=== PATIENT | male | born 1960 | race Caucasian/White ===

== ENCOUNTER → 2019-05-23 14:23 | Outpatient (BNVA) | payer MEDICARE, MEDICAID, SELFPAY | PROVIDERS: Family Provider Family Medicine; PCP Family Medicine; Visit Provider Nurse Practitioner Family | DX: S67.192A Crushing injury of right middle finger, initial encounter (principal); W23.0XXA Caught, crushed, jammed, or pinched between moving objects, initial encounter; M79.89 Other specified soft tissue disorders | CPT/HCPCS: 73140 ==

== ENCOUNTER → 2019-10-02 10:56 | Outpatient (BNVA) | payer MEDICARE, SELFPAY | PROVIDERS: Family Provider Family Medicine; PCP Family Medicine; Visit Provider Nurse Practitioner Family | DX: R06.02 Shortness of breath (principal); F17.200 Nicotine dependence, unspecified, uncomplicated; R06.89 Other abnormalities of breathing; J06.9 Acute upper respiratory infection, unspecified | CPT/HCPCS: 71046; 80053; 85025 ==

== ENCOUNTER 2019-10-26 08:52 | Outpatient (CLI) | payer MEDICARE, SELFPAY ==
--- NOTE | 2019-10-26 09:05 | CT_ITS ---
WS: [id number] CT LUNG CANCER SCREENING DLP: 68.87 mGy.cm DIvol: 1.53 mGy CLINICAL INFORMATION SCREENING VISIT: Baseline COMPARISON: None available. FINDINGS Diagnostic quality: Small amount of artifact through the upper RIGHT thorax from the generator of the cardiac pacer. Comments: None. Lung Nodules: No nodules greater than 3 mm. There are a few scattered benign granulomata. Lungs: Severe hyperexpansion of both lungs. Greater air trapping in the RIGHT lung shift of the midli ne structures slightly to the LEFT. There is some very mild increased interstitial thickening through out the LEFT lung but no pneumonia. No endobronchial lesions. Heart: Normal size heart. Dual lead cardiac pacer wires in the RIGHT heart. Other findings: Normal size aorta. No adenopathy. CT/CT lung screening [id number] IMPRESSION: LUNG-RADS: 2-Benign Appearance or Behavior FOLLOW UP: 12 Month: Continue annual screening with LDCT
== END 2019-10-26 08:53 | disposition home or self-care (01) ==
PROVIDERS: Family Provider Family Medicine; PCP Family Medicine; Visit Provider Nurse Practitioner Family
DX: Z12.2 Encounter for screening for malignant neoplasm of respiratory organs (principal); Z87.891 Personal history of nicotine dependence
CPT/HCPCS: G0297

== ENCOUNTER → 2020-10-31 19:29 | Outpatient (BNVA) | payer MEDICARE, SELFPAY | PROVIDERS: Family Provider Family Medicine; PCP Family Medicine; Visit Provider Internal Medicine Critical Care Medicine | DX: Z20.822 Contact with and (suspected) exposure to COVID-19 (principal) | CPT/HCPCS: 87635 ==

== ENCOUNTER 2020-11-05 10:58 | Outpatient (CLI) | payer MEDICARE, SELFPAY ==
--- NOTE | 2020-11-05 11:30 | CT_ITS ---
WS: [id number] LDCT LUNG CANCER SCREENING HISTORY: Z87.891 - Personal history of nicotine dependence TECHNIQUE: Axial imaging performed from the apices to 1 cm below the costophrenic angles. Coronal and sagittal reformats are submitted with axial MIP series. All CT scans at [facility] use at least one of these dose optimization techniques: automated exposure control; mA and/or kV adjustment per patient size (includes targeted exams where dose is matched to clinical indication); or iterativ e reconstruction. DLP: 96.13 mGy.cm DIvol: 2.38 mGy COMPARISON: 10/26/2019 Diagnostic quality: Satisfactory Lung Nodules: No new or enlarging pulmonary nodules. There are a few benign scattered granulomata. Lungs: Marked pulmonary hyperexpansion. Slightly greater air trapping on the RIGHT causing shift of t he midline structures to the LEFT. Overall appearance of the lungs is similar to the prior examinatio n. There are a few 2 mm nodules in the periphery of the upper lung jimenez which are nonspecific and s table. Heart: Normal size. Dual lead cardiac pacer wires are present. Other findings: Mild atherosclerosis aorta. Pulmonary artery size is equal to the aorta. Small hiatal hernia. CT/CT lung screening [id number] IMPRESSION: LUNG-RADS: 2-Benign Appearance or Behavior FOLLOW UP: 12 Month: Continue annual screening with LDCT OTHER FINDINGS (S MODIFIER): None.
== END 2020-11-05 10:59 | disposition home or self-care (01) ==
LOC: RAD 11:05
PROVIDERS: PCP Family Medicine; Visit Provider Internal Medicine Critical Care Medicine
DX: Z12.2 Encounter for screening for malignant neoplasm of respiratory organs (principal); Z87.891 Personal history of nicotine dependence; I70.0 Atherosclerosis of aorta; K44.9 Diaphragmatic hernia without obstruction or gangrene
CPT/HCPCS: 71271

== ENCOUNTER → 2020-12-12 09:47 | Outpatient (BNVA) | payer MEDICARE, SELFPAY | PROVIDERS: PCP Family Medicine; Visit Provider Internal Medicine Pulmonary Disease | DX: Z20.822 Contact with and (suspected) exposure to COVID-19 (principal); R06.02 Shortness of breath | CPT/HCPCS: 87635 ==

== ENCOUNTER 2020-12-18 10:57 | Outpatient (CLI) | payer MEDICARE, SELFPAY ==
--- NOTE | 2020-12-18 11:18 | PFTS_ITS ---
Date of Study:12/18/20 Date of Dictation: 12/18/20 MECHANICS: Forced vital capacity (FVC) is reduced. Forced expiratory volume in one second (FEV1) is very severely reduced . FEV1/FVC is reduced . FLOW VOLUME LOOP: Scooping of end expiratory limb suggestive of severe airway obstruction . LUNG VOLUMES: Total lung capacity (TLC) is increased . Residual volume (RV) is increased suggesting of severe air trapping. RV/TLC significantly increased-suggesting hyperinflation DIFFUSING CAPACITY FOR CARBON MONOXIDE: Severely reduced 35% . INTERPRETATION: The pulmonary function tests are consistent with severe obstructive ventilatory disease with significant air trapping and hyperinflation on lung volumes. There is severe gas transfer defect. Correlate clinically MTDD
== END 2020-12-18 10:58 | disposition home or self-care (01) ==
PROVIDERS: PCP Family Medicine; Visit Provider Internal Medicine Critical Care Medicine
DX: J44.9 Chronic obstructive pulmonary disease, unspecified (principal)
CPT/HCPCS: 94060; 94726; 94729; J7611

== ENCOUNTER 2021-05-21 12:16 | Outpatient (RCR) | payer MEDICARE, MEDICAID, SELFPAY | END 2021-06-01 23:59 | disposition home or self-care (01) | LOC: PULRHB 12:16 | PROVIDERS: PCP Family Medicine; Visit Provider Internal Medicine Critical Care Medicine | DX: J44.9 Chronic obstructive pulmonary disease, unspecified (principal) | CPT/HCPCS: 94626 ==

== ENCOUNTER 2021-06-02 06:00 | Outpatient (RCR) | payer MEDICARE, MEDICAID, SELFPAY | END 2021-07-02 23:59 | disposition home or self-care (01) | LOC: PULRHB 06:00 | PROVIDERS: PCP Family Medicine; Visit Provider Internal Medicine Critical Care Medicine | DX: J44.9 Chronic obstructive pulmonary disease, unspecified (principal) | CPT/HCPCS: 93280; 94626 ==

== ENCOUNTER → 2021-06-19 10:54 | Outpatient (BNVA) | payer MEDICARE, SELFPAY | PROVIDERS: PCP Family Medicine; Visit Provider Internal Medicine Cardiovascular Disease | DX: Z95.0 Presence of cardiac pacemaker (principal) | CPT/HCPCS: 93280 ==

== ENCOUNTER → 2021-06-29 09:52 | Outpatient (BNVA) | payer MEDICARE, SELFPAY | PROVIDERS: PCP Family Medicine; Visit Provider Internal Medicine Cardiovascular Disease | DX: R06.02 Shortness of breath (principal); I50.33 Acute on chronic diastolic (congestive) heart failure; J44.9 Chronic obstructive pulmonary disease, unspecified; Z95.0 Presence of cardiac pacemaker; I49.8 Other specified cardiac arrhythmias; Z87.891 Personal history of nicotine dependence | CPT/HCPCS: 99214 ==

== ENCOUNTER → 2021-12-15 11:55 | Outpatient (BNVA) | payer MEDICARE, SELFPAY | PROVIDERS: PCP Family Medicine; Visit Provider Internal Medicine Cardiovascular Disease | DX: R06.02 Shortness of breath (principal); I49.8 Other specified cardiac arrhythmias; J44.9 Chronic obstructive pulmonary disease, unspecified; Z87.891 Personal history of nicotine dependence; Z95.0 Presence of cardiac pacemaker | CPT/HCPCS: 99213 ==

== ENCOUNTER 2021-12-29 10:03 | Outpatient (CLI) | payer MEDICARE, SELFPAY ==
--- NOTE | 2021-12-29 13:21 | PFTS_ITS ---
Date of Study:12/29/21 Date of Dictation: MECHANICS: Forced vital capacity (FVC) is reduced. Forced expiratory volume in one second (FEV1) is reduced. FEV1/FVC is reduced. FLOW VOLUME LOOP: Reduced flow at all lung volumes with significant scooping. The inspiratory limb has evidence of variable inspiratory flow obstruction. LUNG VOLUMES: Total lung capacity (TLC) is increased. Residual volume (RV) is increased. DIFFUSING CAPACITY FOR CARBON MONOXIDE: Severely reduced. INTERPRETATION: The postbronchodilator spirometry is consistent with severe airflow obstruction. There is no significant postbronchodilator response. The flow volume loop could be suggestive of variable inspiratory airflow obstruction such as vocal cord dysfunction. The lung volumes are consistent with hyperinflation and air trapping. Gas exchange (DLCO) is severely reduced. MTDD
== END 2021-12-29 10:04 | disposition home or self-care (01) ==
LOC: RT 10:05
PROVIDERS: PCP Family Medicine; Visit Provider Family Medicine
DX: R06.00 Dyspnea, unspecified (principal)
CPT/HCPCS: 94060; 94726; 94729; J7611

== ENCOUNTER 2022-04-06 11:04 | Outpatient (CLI) | payer MEDICARE, SELFPAY ==
--- NOTE | 2022-04-06 11:15 | CT_ITS ---
WS: [id number] LDCT LUNG CANCER SCREENING TECHNIQUE: Noncontrast CT of the chest with coronal and sagittal reformatted images. CLINICAL INFORMATION: Former Smoker COMPARISON: November 05, 2020 DLP: 91.37 mGy.cm DIvol: Mean CTDIvol: 1.60 (mGy) All CT scans at [facility] use at least one of these dose optimization techniques: automat ed exposure control; mA and/or kV adjustment per patient size (includes targeted exams where dose is matched to clinical indication); or iterative reconstruction. FINDINGS: Hyperinflation. Moderate to advanced chronic emphysematous changes. Air-trapping RIGHT lung with RIGH T to LEFT mediastinal shift similar to previous. Cardiac pacer. A few calcified granulomas. No focal pneumonia or pleural fluid. A few tiny 2 mm subpleural nodules in the upper lobes are stable. 6 mm RI GHT upper lobe nodule along the superior hilum. Recommend 6 month follow-up. Normal caliber thoracic aorta. No mediastinal or hilar lymphadenopathy. Calcified RIGHT hilar and sub carinal lymph nodes.Adrenal glands are normal. Small esophageal hiatal hernia. Mild thoracic curve. M ild thoracic kyphosis. CT/CT lung screening [id number] IMPRESSION: Recommend 6 month follow-up low dose chest CT with attention to the 6 mm RIGHT upper lobe nodule. LUNG-RADS: 3-Probably Benign FOLLOW UP: 6 Month LDCT
== END 2022-04-06 11:05 | disposition home or self-care (01) ==
LOC: RAD 11:10
PROVIDERS: PCP Family Medicine; Visit Provider Internal Medicine Pulmonary Disease
DX: Z12.2 Encounter for screening for malignant neoplasm of respiratory organs (principal); Z87.891 Personal history of nicotine dependence
CPT/HCPCS: 71271

== ENCOUNTER → 2022-08-10 15:22 | Outpatient (BNVA) | payer MEDICARE, SELFPAY | PROVIDERS: PCP Family Medicine; Visit Provider Nurse Practitioner Family | DX: R07.9 Chest pain, unspecified (principal) | CPT/HCPCS: 93005 ==

== ENCOUNTER 2022-08-10 15:39 | Emergency (ER) | payer MEDICARE, SELFPAY ==
--- NOTE | 2022-08-10 | XRR_ITS ---
PROCEDURE INFORMATION: Exam: XR Chest Exam date and time: 08/10/2022 4:24 PM Age: 62 years old Clinical indication: Shortness of breath; Additional info: SOB TECHNIQUE: Imaging protocol: Radiologic exam of the chest. Views: 1 view. COMPARISON: CT lung screening [id number] 04/06/2022 11:22 AM FINDINGS: Tubes, catheters and devices: There is a dual-lead cardiac pacer via right subclavian approach. Findings are stable. Lungs: Stable moderate hyperinflation of the lungs. Multiple calcified granulomas in the right lung are stable. No focal consolidation. No pulmonary edema. Pleural spaces: No pleural effusion. No pneumothorax. Heart/Mediastinum: The cardiac silhouette and mediastinal contours are unremarkable. Bones/joints: Unremarkable for age. XR/XR chest 1V portable [id number] IMPRESSION: 1. No acute cardiopulmonary process. 2. Incidental/nonacute findings are listed in the report.
[2022-08-10 15:43] VITALS: BP 184/94; PULSE 102; RESP 30; TEMP 36.6; O2SAT 94
--- NOTE | 2022-08-10 17:11 | ED_ITS ---
HPI - SOB/Dyspnea General: Chief Complaint: Shortness of Breath/Dyspnea Stated Complaint: SOB, Low O2 Time Seen by Provider: 08/10/22 17:11 History of Present Illness: HPI Narrative: 62-year-old male patient comes in today with shortness of breath. Patient was at a office visit when he had increased shortness of breath and could not tolerate a 6-minute walk test. Patient has COPD with chronic emphysema. Patient appears chronically ill. Skin is dry. No edema is noted in the extremities. Associated symptoms: Deny chest pain, fever(s), nausea or vomiting Review of Systems Const: Denies: fever(s) Card: Denies: chest pain Resp: Reports: dyspnea GI: Denies: nausea, vomiting, diarrhea or constipation Skin/Breast: Denies: rash PFSH ED PFSH: Medical History Arrhythmia Atypical chest pain Hydrocephalus Pacemaker Paroxysmal atrial tachycardia Vertigo Surgical History Intracranial shunt Family History Mother CAD (coronary artery disease) Cancer Father Hypertension CAD (coronary artery disease) Grandfather CAD (coronary artery disease) Denies family history of Diabetes Clotting disorder Dementia Chronic kidney disease (CKD) Suicide Anesthesia complication Bleeding disorder Lung disease Stroke Social History Smoking and tobacco status: former smoker Quit status (tobacco): has quit using tobacco Year quit tobacco: 2019 Former quit date comment: Hx of 1.5 PPD x 40 Years Smoking risk assessment/counseling performed?: No Alcohol intake: current Alcohol intake frequency: few times a week Alcohol type: hard liquor Counseling given: No Substance/Drug Use: never Counseling given: No Lives independently: Yes Household members: none Marital status: / Current occupational status: retired and disabled Do you think of yourself as: Straight/Heterosexual Current gender identity: Male Physical Exam Const: COMMON NORMALS: alert HENMT: COMMON NORMALS: normocephalic HEAD & SCALP: normocephalic Neck/C-Spine: COMMON NORMALS: full ROM Resp: EFFORT & INSPECTION: Yes able to speak in complete sentences, Yes abnormal respiratory pattern and Yes labored AUSCULTATION: diminished lung sounds Cardio: COMMON NORMALS: regular rate and regular rhythm RATE: regular rate RHYTHM: regular rhythm GI: COMMON NORMALS: Soft to palpation PALPATION: Yes Soft to palpation Extremity: COMMON NORMALS: no pedal edema Neuro: SENSORIUM/ORIENTATION: Yes alert Skin: NARRATIVE SKIN EXAM: Ichthyosis like skin Course Vital Signs: Vital signs: Vital Signs Temperature 97.9 F 08/10/22 15:43 Pulse Rate 67 08/10/22 17:37 Respiratory Rate 16 08/10/22 17:32 Blood Pressure 184/94 08/10/22 15:43 Pulse Oximetry 98 08/10/22 17:32 Oxygen Delivery Me thod Room Air 08/10/22 17:32 MDM - SOB/Dyspnea Medical Decision Making 62-year-old male patient comes in today with complaints of increased shortness of breath. Patient appears chronically ill. On auscultation patient has decreased air movement throughout lungs. Patient is able to talk in full sentence. Patient does have a history of COPD and emphysema. Differential diagnosis includes but not limited to exacerbation of COPD, pneumonia, CHF. Chest x-ray showed emphysema changes. Laboratory values were unremarkable. BNP was up a little bit at 700, although no prior exam was available for comparison. Patient was treated with DuoNeb and 1 albuterol breathing treatment with significant improvement of lung air movement and significant and shortness of breath. Patient felt well to go home. Patient was given 10 mg dexamethasone IM. Patient will be continued on prednisone 20 twice daily for 5 days. Continue routine care otherwise as directed. Recommend follow-up with primary care for further instructions. Patient reported understanding agreed to plan. Lab Data 08/10/22 16:38 08/10/22 16:38 Labs/Radiology: Radiology Impressions Chest X-Ray 08/10/22 00:00 IMPRESSION: 1. No acute cardiopulmonary process. 2. Incidental/nonacute findings are listed in the report. Laboratory Results WBC 6.0 10^3/uL (4.0-10.0) 08/10/22 16:38 RBC 4.81 10^6/uL (4.1-5.3) 08/10/22 16:38 Hgb 14.7 g/dL (11.7-16.6) 08/10/22 16:38 Hct 45.8 % (42.0-52.0) 08/10/22 16:38 MCV 95.2 fl (80-94) H 08/10/22 16:38 MCH 30.6 pg (28.0-34.0) 08/10/22 16:38 MCHC 32.1 g/dL (30.0-36.0) 08/10/22 16:38 RDW 14.4 % (12.1-15.1) 08/10/22 16:38 Plt Count 150 10^3/cmm (130-400) 08/10/22 16:38 MPV 10.2 fL (7.4-10.4) 08/10/22 16:38 Neut % (Auto) 76.1 % 08/10/22 16:38 Lymph % (Auto) 15.4 % 08/10/22 16:38 [place] % (Auto) 5.8 % 08/10/22 16:38 Eos % (Auto) 1.5 % 08/10/22 16:38 Baso % (Auto) 0.7 % 08/10/22 16:38 Neut # (Auto) 4.58 10^3/uL (1.8-7.7) 08/10/22 16:38 Lymph # (Auto) 0.9 10^3/uL (0.8-4.8) 08/10/22 16:38 [place] # (Auto) 0.4 10^3/uL (0.2-0.9) 08/10/22 16:38 Eos # (Auto) 0.1 10^3/uL (0.0-0.8) 08/10/22 16:38 Baso # (Auto) 0.0 10^3/uL (0.0-0.1) 08/10/22 16:38 Nucleated RBC % (auto) 0 % 08/10/22 16:38 Nucleated RBCs # 0.0 /100WBC 08/10/22 16:38 Sodium 139 mmol/L (136-145) 08/10/22 16:38 Potassium 3.9 mmol/L (3.5-5.1) 08/10/22 16:38 Chloride 102 mmol/L (98-107) 08/10/22 16:38 Carbon Dioxide 24 mmol/L (22-29) 08/10/22 16:38 Anion Gap 16.9 (5-19) 08/10/22 16:38 BUN 9 mg/dL (8-23) 08/10/22 16:38 Creatinine 0.8 mg/dL (0.7-1.2) 08/10/22 16:38 GFR Calculation 97.6 mL/min (90-130) 08/10/22 16:38 Glucose 97 mg/dL (65-115) 08/10/22 16:38 Calculated Osmolality 287 mOsm/kg (285-295) 08/10/22 16:38 Calcium 8.7 mg/dL (8.5-10.5) 08/10/22 16:38 Total Bilirubin 0.7 mg/dL (0.15-1.2) 08/10/22 16:38 AST 21 U/L (0-40) 08/10/22 16:38 ALT 10 U/L (0-41) 08/10/22 16:38 Alkaline Phosphatase 112 U/L (40-130) 08/10/22 16:38 NT-Pro-B Natriuret Pep 726 pg/mL (0-125) H 08/10/22 16:38 Total Protein 7.6 g/dL (6.6-8.7) 08/10/22 16:38 Albumin 4.7 g/dL (3.5-5.2) 08/10/22 16:38 Globulin 2.9 g/dL (1.3-4.6) 08/10/22 16:38 Discharge Plan Discharge Patient Disposition: Home Clinical Impression: Acute exacerbation of chronic obstructive airways disease Condition: Stable Prescriptions: New prednisone 20 mg tablet 20 mg PO BID 5 Days Qty: 10 0RF No Action metoprolol tartrate 25 mg tablet 25 mg PO BID cyclobenzaprine 10 mg tablet 10 mg PO TID Qty: 30 2RF nitroglycerin 0.4 mg tablet, sublingual 0.4 mg SUBLINGUAL Q5M PRN albuterol sulfate 90 mcg/actuation HFA aerosol inhaler 2 puff inhalation Q6H PRN (Reason: shortness of breath or wheezing) Qty: 8.5 0RF Rx Instructions: NEEDS APPT PRIOR TO FURTHER REFILLS Spiriva with HandiHaler 18 mcg capsule, w/inhalation device 1 cap inhalation DAILY 30 Days Qty: 60 4RF Rx Instructions: puncture 1 cap using device; one dose = 2 inhalations fluticasone propion-salmeterol [Advair Diskus] 250-50 mcg/dose blister with device 1 inh INHALATION BID Qty: 60 5RF Discharge Orders: Discharge ED (Routine); Ordered 08/10/22 Ordered By: Thiago Savage Referrals: Arjun Coburn MD [Primary Care Provider] - Discharge Diet: Usual diet Discharge Activity: Increase activity as tolerated Patient Instructions: COPD (Chronic Obstructive Pulmonary Disease) (ED) Activity Restrictions/Additional Instructions: Follow-up with primary care in 2 to 3 days for recheck. Return to emergency department for worsening symptoms such as increased shortness of breath, severe chest pain, high fever greater than 100.4. Coding Level of Care Code ED Diffusion Furnace Operator for Lynne Junior
[2022-08-10 17:17] LABS: Basophils % 0.7 %; Eosinophils # 0.1 10^3/uL (0.0-0.8); Eosinophils % 1.5 %; Hematocrit 45.8 % (42.0-52.0); Hemoglobin 14.7 g/dL (11.7-16.6); Lymphocytes # 0.9 10^3/uL (0.8-4.8); Lymphocytes % 15.4 %; Mean Corpuscular HGB Conc 32.1 g/dL (30.0-36.0); Mean Corpuscular Hemoglobin 30.6 pg (28.0-34.0); Mean Corpuscular Volume 95.2 fl (80-94); Mean Platelet Volume 10.2 fL (7.4-10.4); Monocytes # 0.4 10^3/uL (0.2-0.9); Monocytes % 5.8 %; Neutrophils # 4.58 10^3/uL (1.8-7.7); Neutrophils % 76.1 %; Nucleated Red Blood Cells % 0 %; Platelet Count 150 10^3/cmm (130-400); Red Blood Count 4.81 10^6/uL (4.1-5.3); Red Cell Distribution Width 14.4 % (12.1-15.1)
--- NOTE | 2022-08-10 17:17 | PC.NURSE ---
Pt refused IV insertion.
[2022-08-10 17:30] VITALS: BP 163/95; PULSE 68; RESP 20; O2SAT 99
[2022-08-10 17:32] VITALS: PULSE 72; RESP 16; O2SAT 98
[2022-08-10] MEDS: dexamethasone 10 mg/mL INJ IM (17:33)
[2022-08-10] MEDS: ipratropium-albuterol 3 mL Neb INHALATION (17:34)
[2022-08-10] MEDS: albuterol 2.5 mg/3 mL Neb INHALATION (17:36)
[2022-08-10 17:37] VITALS: PULSE 67
[2022-08-10 17:56] LABS: Alanine Aminotransferase 10 U/L (0-41); Albumin Level 4.7 g/dL (3.5-5.2); Alkaline Phosphatase 112 U/L (40-130); Anion Gap 16.9 (5-19); Aspartate Amino Transferase 21 U/L (0-40); Blood Urea Nitrogen 9 mg/dL (8-23); Calcium 8.7 mg/dL (8.5-10.5); Carbon Dioxide 24 mmol/L (22-29); Chloride 102 mmol/L (98-107); Globulin 2.9 g/dL (1.3-4.6); Glomerular Filtration Rate 97.6 mL/min (90-130); Glucose 97 mg/dL (65-115); NT Pro B Type Natriuretic Pept 726 pg/mL (0-125); Osmolality Calculated 287 mOsm/kg (285-295); Potassium 3.9 mmol/L (3.5-5.1); Sodium 139 mmol/L (136-145); Total Bilirubin 0.7 mg/dL (0.15-1.2); Total Protein 7.6 g/dL (6.6-8.7)
[2022-08-10 18:00] VITALS: BP 150/86; PULSE 65; RESP 20; O2SAT 98
[2022-08-10 18:23] VITALS: BP 142/89; PULSE 69; RESP 22; O2SAT 97
== END 2022-08-10 18:24 | disposition home or self-care (01) ==
PROVIDERS: Family Medicine; Emergency Provider Nurse Practitioner Family; PCP Family Medicine
DX: J44.1 Chronic obstructive pulmonary disease with (acute) exacerbation (principal); Z87.891 Personal history of nicotine dependence; Z95.0 Presence of cardiac pacemaker; R07.9 Chest pain, unspecified; R06.02 Shortness of breath
CPT/HCPCS: 36415; 71045; 80053; 83880; 85025; 93005; 94640; 96372; 99214; 99284; J1100; J7613

== ENCOUNTER 2022-10-04 09:03 | Outpatient (CLI) | payer MEDICARE, SELFPAY ==
--- NOTE | 2022-10-04 09:00 | CT_ITS ---
WS: [id number] LDCT LUNG CANCER SCREENING TECHNIQUE: Noncontrast CT of the chest with coronal and sagittal reformatted images. CLINICAL INFORMATION: lung screening COMPARISON: CT lung screening April 06, 2022 DLP: 49.48 mGy.cm DIvol: Mean CTDIvol: 0.60 (mGy) All CT scans at [facility] use at least one of these dose optimization techniques: automat ed exposure control; mA and/or kV adjustment per patient size (includes targeted exams where dose is matched to clinical indication); or iterative reconstruction. FINDINGS: Hyperinflation. Moderate to advanced chronic emphysematous changes. Air-trapping RIGHT lung with RIGH T to LEFT mediastinal shift similar to previous. Cardiac pacer. Partially visualized shunt tubing. A few calcified granulomas. No focal pneumonia or pleural fluid. A few tiny scattered subpleural nodu les bilaterally similar to previous. 6 mm RIGHT upper lobe nodule along the superior hilum unchanged. Small esophageal hiatal hernia. Mild thoracic curve. Mild thoracic kyphosis. Normal caliber thoracic aorta. No mediastinal or hilar lymphadenopathy. Calcified RIGHT hilar and subcarinal lymph nodes.Adre nal glands are normal. CT/CT lung screening [id number] IMPRESSION: LUNG-RADS: 2-Benign Appearance or Behavior FOLLOW UP: 12 Month: Continue annual screening with LDCT
== END 2022-10-04 09:04 | disposition home or self-care (01) ==
LOC: RAD 09:05
PROVIDERS: PCP Family Medicine; Visit Provider Internal Medicine Pulmonary Disease
DX: Z12.2 Encounter for screening for malignant neoplasm of respiratory organs (principal); R06.02 Shortness of breath; Z87.891 Personal history of nicotine dependence; Z95.0 Presence of cardiac pacemaker
CPT/HCPCS: 71271

== ENCOUNTER → 2022-11-30 11:21 | Outpatient (BNVA) | payer MEDICARE, SELFPAY | PROVIDERS: PCP Family Medicine; Visit Provider Internal Medicine Cardiovascular Disease | DX: Z45.018 Encounter for adjustment and management of other part of cardiac pacemaker (principal); I49.8 Other specified cardiac arrhythmias; J44.9 Chronic obstructive pulmonary disease, unspecified; Z87.891 Personal history of nicotine dependence | CPT/HCPCS: 99214 ==

== ENCOUNTER 2022-12-08 10:19 | Outpatient (CLI) | payer MEDICARE, SELFPAY ==
[2022-12-08 10:55] LABS: Basophils # 0.1 10^3/uL (0.0-0.1); Basophils % 1.2 %; Eosinophils # 0.1 10^3/uL (0.0-0.8); Eosinophils % 1.2 %; Lymphocytes # 1.1 10^3/uL (0.8-4.8); Mean Corpuscular HGB Conc 32.2 g/dL (30-55); Mean Corpuscular Hemoglobin 30.2 pg (27-33); Mean Corpuscular Volume 93.8 fl (82-101); Monocytes # 0.3 10^3/uL (0.2-0.9); Monocytes % 5.5 %; Neutrophils # 4.42 10^3/uL (1.8-7.7); Neutrophils % 73.8 %; Nucleated Red Blood Cells % 0 %; Platelet Count 172 10^3/cmm (157-399); Red Cell Distribution Width 14.6 % (12.1-15.1); White Blood Count 5.99 10^3/uL (3.29-11.43)
[2022-12-08 11:06] LABS: INR 1.04 (0.83-1.21)
[2022-12-08 11:36] LABS: Blood Urea Nitrogen 11 mg/dL (8-23); Calcium 9.1 mg/dL (8.5-10.5); Carbon Dioxide 24 mmol/L (22-29); Chloride 102 mmol/L (98-107); Glomerular Filtration Rate 97.6 mL/min (90-130); Glucose 95 mg/dL (65-115); Osmolality Calculated 285 mOsm/kg (285-295); Sodium 138 mmol/L (136-145)
[2022-12-08 11:55] LABS: Anion Gap 16.7 (5-19); Potassium 4.7 mmol/L (3.5-5.1)
== END 2022-12-08 10:20 | disposition home or self-care (01) ==
PROVIDERS: PCP Family Medicine; Visit Provider Internal Medicine Cardiovascular Disease
DX: Z45.018 Encounter for adjustment and management of other part of cardiac pacemaker (principal); I49.8 Other specified cardiac arrhythmias
CPT/HCPCS: 36415; 80048; 85025; 85610; 86850; 86900

== ENCOUNTER 2022-12-10 09:07 | Observation (INO) | payer MEDICARE, SELFPAY ==
[2022-12-10] VITALS (11 sets, daily range): BP systolic 143–195; BP diastolic 84–118; PULSE 60–83; RESP 14–20; TEMP 36.4–37.1; O2SAT 90–100; BMI 17.4
--- NOTE | 2022-12-10 07:17 | W.PM.OPSUD ---
Surgery/Procedure H&P Update DATE OF PROCEDURE: December 10, 2022 DATE H&P PERFORMED: 11/30/22 H&P UPDATE INFORMATION: I have reviewed H&P completed within last 30 days, I have examined patient prior to procedure and No changes to prior documentation PREOP DIAGNOSIS: PPM HARITHA PRIMARY INDICATION FOR PROCEDURE: Pt with symptomatic bradycardia, PPM HARITHA PLANNED PROCEDURE: Operation Date: 12/10/22 07:00 [place] [address]607,Z45.018(Not Applicable) - Lawrence Nieto MD PATIENT REASSESSED PRIOR TO SEDATION, WITH NO CHANGE NOTED: Yes PHYSICAL EXAM: alert, oriented x 3, clear to auscultation bilaterally and regular rate & rhythm AIRWAY EVAL/ANESTHESIA PLAN: normal airway, see other exam findings, ASA III, Monitored Anesthesia, Local Anesthesia, Risks, benefits & alternatives of sedation and/or procedure discussed and Patient agrees to continue as planned
--- NOTE | 2022-12-10 08:50 | P.OP_ITS ---
Operative Report Date of procedure: December 10, 2022 Surgeon: Lawrence Nieto MD Procedure: PROCEDURE: PACEMAKER REVISION PREOPERATIVE DIAGNOSIS: Pacemaker elective replacement indication. POSTOPERATIVE DIAGNOSIS: Pacemaker elective replacement indication. ESTIMATED BLOOD LOSS: None COMPLICATIONS: None. BRIEF HISTORY: The patient is 62-year-old white male who had a permanent pacemaker implantation for symptomatic bradycardia. The patient was found to have elective replacement indication, during routine office followup evaluation. For further management of patient's condition for the symptomatic bradycardia, the patient required a pacemaker revision. Patient required a dual-chamber pacemaker for symptom relief and the need for AV synchrony The procedure was explained to the patient in detail with the risks and benefits. The risks of bleeding, hematoma, vascular injury, infection and other concomitant complications were explained in detail, which the patient understood well and consented to proceed. PROCEDURES PERFORMED: 1. Explantation of the old pacemaker generator. 2. Implantation of the new generator. The patient brought to the Cardiac In Flight Crew Member. The right side of the neck and the subclavian area were cleaned and draped in a sterile fashion. 1% Xylocaine was used for local anesthetic agent. A 2 inch long incision was made just below the previous pacemaker scar. By sharp and blunt dissection, the pacemaker pocket was accessed. The old generator was delivered from the pocket. The generator was detached from the lead. The new Medtronic generator was attached to the lead. The pacemaker pocket was copiously irrigated with vancomycin solution. Complete hemostasis was achieved. The lead was positioned behind the generator and the generator was attached to the pectoralis fascia by suturing with 0 Surgilon. Sponge counts were confirmed. The pacemaker pocket was closed in layers. Skin was approximated using 4-0 Vicryl. EXPLANTED DEVICE: Pacemaker Generator: Brand: Adapta. Model number: [id number]. Serial number: [id number]. Date of implant: 09/10/2011 IMPLANTED DEVICES: Ventricular Lead: Date of implantation: 12/16/2003 Model number: 4092/58 Serial number: [id number] Make: Medtronic. Atrial lead Date of implantation: 12/16/2003 Model number: 4568/53 Serial number: [id number] Make: Medtronic. Implanted Generator: Date of implantation : 12/10/2022 Brand: [place] XT DR JEAN-PAUL Amin Model number: [id number] Serial number: [id number] Make: Medtronic Stimulation Threshold: The ventricular sensing was 9.5 millivolts. Ventricular lead impedance was 494 ohms and the pacing threshold was 0.5 volts at 0.4 milliseconds. The atrial sensing was 0.4 millivolts. Atrial lead impedance was 475 ohms and the pacing threshold was 1.5 volts at 0.4 milliseconds. The pacemaker was set for AAIR/DDDR mode with an upper rate of 130 and a lower rate of 60. A pressure dressing was applied over the pacemaker site. The patient was transferred back to medical floor in stable condition. Sponge counts were correct.
[2022-12-10] MEDS: ceFAZolin 2,000 MG in sodium chloride 0.9% (plus) 50 ML 100 MG IV ×3 (09:10→21:04)
[2022-12-10] MEDS: metoprolol tartrate 25 mg Tablet PO ×2 (09:17→17:51)
[2022-12-10] MEDS: cyclobenzaprine 10 mg Tablet PO ×2 (09:17→14:37)
[2022-12-10] MEDS: sodium chloride 0.9% 1,000 ML 75 ML IV ×2 (09:26→21:03)
[2022-12-10] MEDS: ipratropium-albuterol 3 mL Neb INHALATION ×3 (11:45→20:09)
[2022-12-10] MEDS: budesonide 0.5 mg/2 mL Neb INHALATION (20:09)
[2022-12-11 04:00] VITALS: BP 143/84; PULSE 60; RESP 18; TEMP 37.1; O2SAT 94
[2022-12-11] MEDS: ceFAZolin 2,000 MG in sodium chloride 0.9% (plus) 50 ML 100 MG IV (05:18)
[2022-12-11 06:00] VITALS: PULSE 60
--- NOTE | 2022-12-11 06:00 | ECG_ITS ---
[facility] Test Date: 2022-12-11 Pat Name: Sai Silveira Department: Room: 102 Gender: Male Rug Cutter: : 1960 Requested By: Lawrence Nieto Order Number: [id number] Reading MD: Jordan Langston M.D. Measurements Intervals [place] Rate: 60 P: 208 OK: 200 QRS: 88 QRSD: 77 T: -63 QT: 364 QTc: 365 Interpretive Statements ELECTRONIC ATRIAL PACEMAKER MODERATE T-WAVE ABNORMALITY, CONSIDER ANTERIOR ISCHEMIA [-0.1+ mV T-WAVE IN V3/V4] Compared to ECG 08/10/2022 15:27:11 T-wave abnormality now present Possible ischemia now present Ventricular-paced complex(es) or rhythm no longer present Ventricular premature complex(es) no longer present Electronically Signed On 12-11-2022 14:03:01 CDT by Jordan Langston M.D. [email or web address]
[2022-12-11] MEDS: ipratropium-albuterol 3 mL Neb INHALATION (08:03)
[2022-12-11] MEDS: budesonide 0.5 mg/2 mL Neb INHALATION (08:03)
[2022-12-11 08:05] VITALS: PULSE 64; RESP 18; O2SAT 96
--- NOTE | 2022-12-11 08:10 | PM.DCS ---
Discharge Providers Date of Admission: 12/10/22 09:07 Date of Discharge: December 11, 2022 Attending Provider at Admission: Lawrence Nieto MD Attending Provider at Discharge: Lawrence Nieto MD Primary Care Provider: Gennaro Coburn Reason for Visit Reason for Visit: Z45.018 Brief History: Patient was admitted electively for pacemaker generator change. Hospital Course Hospital Course The change occurred without incident by Dr. Nieto. Patient without complications. Physical Exam Narrative: GENERAL: In general he is comfortable this morning. HEENT: Exam within normal limits. [] NECK: Supple without jugular vein distention. The carotid upstroke is normal without bruits. [] BACK: Exam normal. [] LUNGS: Clear. [] HEART: Regular rate and rhythm. [] ABDOMEN: Benign without organomegaly or tenderness. [] EXTREMITIES: No edema. [] NEUROLOGIC: Exam normal. [] SKIN: Unremarkable. Pacemaker site is unremarkable. Pacemaker functioning normally. Discharge Data Studies Completed and Pending Completed Studies During Hospitalization Category Date Time Status INSTRUMENT ADJUSTER request for service Routine Exams 12/10/22 06:00 Completed Procedures Performed Pacemaker generator change out Vitals Last Vital Signs Temp 98.8 F 12/11/22 04:00 Pulse 64 12/11/22 08:05 Resp 18 12/11/22 08:05 BP 143/84 12/11/22 04:00 Pulse Ox 96 12/11/22 08:05 O2 Del Method Room Air 12/11/22 08:05 O2 Flow Rate 3 12/10/22 06:00 Discharge Plan Discharge Patient Disposition: Home Prescriptions: New cephalexin 500 mg capsule 500 mg PO Q6H 5 Days Qty: 20 0RF multivitamin Tablet 1 tab PO DAILY 14 Days Qty: 14 0RF Continued metoprolol tartrate 25 mg tablet 25 mg PO BID cyclobenzaprine 10 mg tablet 10 mg PO TID Qty: 30 2RF nitroglycerin 0.4 mg tablet, sublingual 0.4 mg SUBLINGUAL Q5M PRN (Reason: Chest Pain) albuterol sulfate 90 mcg/actuation HFA aerosol inhaler 2 puff inhalation Q6H PRN (Reason: shortness of breath or wheezing) Qty: 8.5 0RF Rx Instructions: NEEDS APPT PRIOR TO FURTHER REFILLS Spiriva with HandiHaler 18 mcg capsule, w/inhalation device 1 cap inhalation DAILY 30 Days Qty: 60 4RF Rx Instructions: puncture 1 cap using device; one dose = 2 inhalations fluticasone propion-salmeterol [Advair Diskus] 250-50 mcg/dose blister with device 1 inh INHALATION BID Qty: 60 5RF Discharge Orders: Discharge Order (Routine); Ordered 12/11/22 Ordered By: Jordan Langston Referrals: Lawrence Nieto MD [Physician] - 3 months Aurelia Hong FNP [Nurse Practitioner] - 7-10 days (Pacemaker check, pacemaker site check.) Discharge Diet: Advance as tolerated and Usual diet Discharge Activity: Limit activity as instructed Patient Instructions: Post Pacemaker - [place] Activity Restrictions/Additional Instructions: Minimize the movements of the left shoulder to 45 degrees. Keep the dressing on till the patient comes to the clinic next for a wound check and pacemaker check Take the antibiotics along with multivitamins as prescribed Appointment the [facility] next week to be seen by the nurse practitioner Appointment with me in the office in 3 months Discharge Attestations Time Spent in Discharge Care*: less than 30 min Quality Metrics Clinical Quality Measures [ No reported AMI, CVA or VTE this stay] Coding Level of Care Code Acute Code for Chg Fwd Diagnoses
[2022-12-11] MEDS: cyclobenzaprine 10 mg Tablet PO (08:29)
[2022-12-11] MEDS: metoprolol tartrate 25 mg Tablet PO (08:29)
[2022-12-11 08:42] VITALS: BP 138/81; PULSE 60; RESP 19; O2SAT 99
[2022-12-11 08:46] VITALS: BP 138/81; PULSE 60; RESP 19; O2SAT 99
[2022-12-11 08:55] VITALS: BP 138/81; PULSE 60; RESP 16; TEMP 36.5; O2SAT 100
--- NOTE | 2022-12-11 11:32 | PC.NURSE ---
Discharge Note Patient discharged to home via POV accompanied by daughter. Discharge instructions reviewed with patient and/or bank representative. Mobile pharmacy medications and/or prescriptions provided. Belongings/home medications returned.
== END 2022-12-11 10:45 | disposition home or self-care (01) ==
LOC: CSU 09:08
PROVIDERS: Admitting Provider Internal Medicine Cardiovascular Disease; PCP Family Medicine; Visit Provider Internal Medicine Cardiovascular Disease
DX: Z45.018 Encounter for adjustment and management of other part of cardiac pacemaker (principal); J44.9 Chronic obstructive pulmonary disease, unspecified; Z87.891 Personal history of nicotine dependence; I49.8 Other specified cardiac arrhythmias; R06.02 Shortness of breath
CPT/HCPCS: 33228; 36415; 93005; 94640; 96361; 96365; 96367; 97165; 99152; 99153; A4216; A4565; C1769; C1786; G0378; J0690; J2250; J3010; J3370; J7030; J7050; J7626

== ENCOUNTER → 2023-06-06 12:58 | Outpatient (BNVA) | payer MEDICARE, SELFPAY | PROVIDERS: PCP Family Medicine; Referring Provider Family Medicine; Visit Provider Thoracic Surgery (Cardiothoracic Vascular Surgery) | DX: K44.9 Diaphragmatic hernia without obstruction or gangrene (principal) | CPT/HCPCS: 99203 ==

== ENCOUNTER 2023-11-04 13:37 | Emergency (ER) | payer MEDICARE, SELFPAY ==
[2023-11-04] VITALS (12 sets, daily range): BP systolic 102–147; BP diastolic 69–91; PULSE 64–109; RESP 16–22; TEMP 36.6; O2SAT 92–100
--- NOTE | 2023-11-04 13:57 | XR_ITS ---
WS: [id number] Portable AP upright chest, 11/04/2023 Clinical Data: Shortness of breath Comparison: Portable chest, 08/10/2022 Findings: No nodules, masses or effusions are seen. The heart is normal. The pulmonary vascularity is not increased. No pneumonia or pneumothorax is seen. The diaphragms are flattened. There is a perman ent pacemaker with the generator overlying the right upper chest and wires ending in the heart. There is a ventriculoperitoneal shunt tube overlying the left chest. Monitor leads are on the chest wall. There is a slight dextroscoliosis of the thoracic spine. XR/XR chest 1V portable [id number] Impression: No change in hyperinflation and permanent pacemaker.
--- NOTE | 2023-11-04 13:58 | ECG_ITS ---
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 Measurements Intervals [place] Rate: 77 P: 90 DE: 157 QRS: 91 QRSD: 90 T: 100 QT: 327 QTc: 371 Interpretive Statements SINUS RHYTHM RIGHT ATRIAL ENLARGEMENT [0.3mV P-WAVE] POSSIBLE LEFT ATRIAL ENLARGEMENT [-0.1mV P-WAVE IN V1/V2] BORDERLINE RIGHT AXIS DEVIATION [QRS AXIS > 90] PATTERN CONSISTENT WITH PULMONARY DISEASE Compared to ECG 12/11/2022 04:59:54 Atrial abnormality now present Atrial-paced complex(es) or rhythm no longer present T-wave abnormality no longer present Possible ischemia no longer present Electronically Signed On 11-04-2023 17:33:35 CDT by Siddharth Morton M.D. [id number]
[2023-11-04] MEDS: albuterol 2.5 mg/3 mL Neb INHALATION (14:12)
[2023-11-04] MEDS: ipratropium-albuterol 3 mL Neb INHALATION ×2 (14:12→17:30)
[2023-11-04 14:30] LABS: ABG PCO2 29.5 mmHg (35-45); ABG PH Result 7.43 (7.35-7.45); Arterial Blood Gas Hematocrit 43.3 % (42-52); Base Excess ABG -3.6 mmol/L (-2.0-2.0); Blood Gas Allen Test Pos; Blood Gas Operator Identificat CAK; Blood Gas Sample Site Brachial, left; Blood Gas Sample Type Arterial; Carboxyhemoglobin 0.9 %THgb (0.4-20.1); HCO3 ABG 19.5 mmol/L (22-26); HGB O2 Sat 98.4 % (95-100); Ionized Calcium Level - ABG 1.2 mmol/L (1.1-1.4); Methemoglobin 0.1 % (0.4-1.5); Oxygen Device NC; Oxygen Saturation ABG 99.4; PO2 FiO2 Ratio Arterial Blood 435; Potassium Level - ABG 3.9 mmol/L (3.5-5.0); Total Hemoglobin 14.1 g/dL (14-18)
[2023-11-04 14:34] LABS: Basophils # 0.1 10^3/uL (0.0-0.1); Basophils % 0.9 %; Eosinophils % 0.2 %; Hematocrit 43.9 % (37-53); Lymphocytes # 0.7 10^3/uL (0.8-4.8); Mean Corpuscular HGB Conc 31.9 g/dL (30-55); Mean Corpuscular Hemoglobin 30.2 pg (27-33); Mean Corpuscular Volume 94.8 fl (82-101); Mean Platelet Volume 8.9 fL (7.4-10.4); Monocytes # 0.4 10^3/uL (0.2-0.9); Monocytes % 6.7 %; Neutrophils # 4.63 10^3/uL (1.8-7.7); Neutrophils % 79.5 %; Nucleated Red Blood Cells % 0 %; Platelet Count 209 10^3/cmm (157-399); Red Blood Count 4.63 10^6/uL (3.85-5.65); Red Cell Distribution Width 15.2 % (12.1-15.1); White Blood Count 5.82 10^3/uL (3.29-11.43)
[2023-11-04 14:56] LABS: Troponin(5th) Baseline 19 ng/L (0-15)
[2023-11-04 14:57] LABS: Lactic Sepsis W/Reflex 3.2 mmol/L (0.5-2.2)
[2023-11-04 15:02] LABS: Alanine Aminotransferase 10 U/L (0-41); Albumin Level 4.2 g/dL (3.5-5.2); Alkaline Phosphatase 100 U/L (40-130); Anion Gap 22.8 (5-19); Aspartate Amino Transferase 18 U/L (0-40); Blood Urea Nitrogen 18 mg/dL (8-23); Calcium 9.7 mg/dL (8.5-10.5); Carbon Dioxide 19 mmol/L (22-29); Chloride 100 mmol/L (98-107); Creatinine Clr Calc Pharmacy 71.8189; Globulin 2.5 g/dL (1.3-4.6); Glomerular Filtration Rate 75.2 mL/min (90-130); Glucose 104 mg/dL (65-115); NT Pro B Type Natriuretic Pept 241 pg/mL (0-125); Osmolality Calculated 288 mOsm/kg (285-295); Potassium 3.8 mmol/L (3.5-5.1); Sodium 138 mmol/L (136-145); Total Bilirubin 1.4 mg/dL (0.15-1.2); Total Protein 6.7 g/dL (6.6-8.7)
--- NOTE | 2023-11-04 15:47 | ED_ITS ---
HPI - SOB/Dyspnea 2 General: Chief Complaint: Shortness of Breath/Dyspnea Stated Complaint: needing oxygen Time Seen by Provider: 11/04/23 13:56 History of Present Illness: HPI Narrative: 63-[facility]. Patient has end-stage COPD he is on 4 L/min of oxygen he left to follow his daughter to the emergency room she was in an ambulance. The oxygen tank that he took was nearly empty and ran out and route. On arrival here he is very short of breath. Some mild chest discomfort associated with it as well but all of this resolved once he was given supplemental oxygen his sats are now normalized having no further symptoms. No recent fever sweats or chills no shortness of breath Associated symptoms: Deny abdominal pain, chest pain or fever(s) Review of Systems 2 Const: Denies: fever(s) or chills Card: Denies: chest pain Resp: Reports: dyspnea and wheezing GI: Denies: abdominal pain : Denies: dysuria, urinary frequency or urinary urgency Musc: Denies: neck pain or back pain Skin/Breast: Denies: rash PFSH ED 2 PFSH: Medical History Hiatal hernia Atypical chest pain Arrhythmia Hydrocephalus Vertigo Paroxysmal atrial tachycardia Pacemaker Surgical History Intracranial shunt Family History Mother CAD (coronary artery disease) Cancer Father Hypertension CAD (coronary artery disease) Grandfather CAD (coronary artery disease) Denies family history of Diabetes Clotting disorder Dementia Chronic kidney disease (CKD) Suicide Anesthesia complication Bleeding disorder Lung disease Stroke Social History Smoking and tobacco/nicotine status: current some day tobacco/nicotine user cigarettes Packs smoked per day: 0.5 Years cigarettes smoked: 35 Alcohol intake: current Alcohol intake frequency: few times a week Alcohol type: hard liquor Substance/Drug Use: never Lives independently: Yes Household members: none Marital status: / Current occupational status: retired and disabled Do you think of yourself as: Straight/Heterosexual Current gender identity: Male Physical Exam 2 Const: GENERAL APPEARANCE: cooperative NUTRITIONAL APPEARANCE: cachectic ORIENTATION/CONSCIOUSNESS: Yes awake, Yes oriented to person, Yes oriented to place and Yes oriented to time HENMT: COMMON NORMALS: normocephalic, atraumatic and hearing grossly normal bilaterally HEAD & SCALP: normocephalic and atraumatic Resp: COMMON NORMALS: normal respiratory effort, No retractions and No use of accessory muscles AUSCULTATION: wheezes Cardio: COMMON NORMALS: regular rate, regular rhythm and No murmurs present (Cardio) RATE: regular rate RHYTHM: regular rhythm GI: COMMON NORMALS: Soft to palpation and No hepatosplenomegaly present A USCULTATION: Yes normoactive bowel sounds PALPATION: Yes Soft to palpation, No Tenderness to palpation present (GI), No Guarding due to palpation present (GI) and Yes No hepatosplenomegaly present Extremity: COMMON NORMALS: normal to inspection, capillary refill normal, no clubbing, cyanosis or edema, no calf tenderness and no pedal edema Neuro: SENSORIUM/ORIENTATION: Yes oriented to person, Yes oriented to place and Yes oriented to time Skin: COMMON NORMALS: no rashes or lesions noted GENERAL SKIN EXAM: no rashes or lesions noted Course 2 Vital Signs: Vital signs: Vital Signs Temperature 97.8 F 11/04/23 13:42 Pulse Rate 76 11/04/23 17:47 Respiratory Rate 16 11/04/23 17:31 Blood Pressure 130/91 11/04/23 17:47 Pulse Oximetry 92 11/04/23 17:47 Oxygen Delivery Me thod Nasal Cannula 11/04/23 17:31 Oxygen Flow Rate 2 11/04/23 17:31 MDM - SOB/Dyspnea Medical Decision Making Patient complaining some chest discomfort. It resolved when his oxygen was replaced. His cardiac enzymes remained stable EKG did not show any acute changes. He did have slightly elevated lactic acid improved after fluids he states he feels fine he wishes to go home. May be due to his increased work of breathing which is chronic and severe. He does not had any increased productive cough or change in baseline sputum he denies dysuria urgency or frequency no skin infections. Will go and discharge him home encouraged him to follow-up with his primary care doctor or return here if there is any signs of infection. Time of exam states he is feeling much better. Nebulizer and resuming his oxygen at normal level did not help him. Medical Records I reviewed the patient's medical records. Lab Data I reviewed the patient's lab results. 11/04/23 14:29 11/04/23 14:29 Labs/Radiology: Radiology Impressions Chest X-Ray 11/04/23 13:57 Impression: No change in hyperinflation and permanent pacemaker. Laboratory Results WBC 5.82 10^3/uL (3.29-11.43) 11/04/23 14:29 RBC 4.63 10^6/uL (3.85-5.65) 11/04/23 14:29 Hgb 14.00 g/dL (11.27-16.99) 11/04/23 14:29 Hct 43.9 % (37-53) 11/04/23 14:29 MCV 94.8 fl (82-101) 11/04/23 14:29 MCH 30.2 pg (27-33) 11/04/23 14:29 MCHC 31.9 g/dL (30-55) 11/04/23 14:29 RDW 15.2 % (12.1-15.1) H 11/04/23 14:29 Plt Count 209 10^3/cmm (157-399) 11/04/23 14:29 MPV 8.9 fL (7.4-10.4) 11/04/23 14:29 Neut % (Auto) 79.5 % 11/04/23 14:29 Lymph % (Auto) 12.0 % 11/04/23 14:29 Gray % (Auto) 6.7 % 11/04/23 14:29 Eos % (Auto) 0.2 % 11/04/23 14:29 Baso % (Auto) 0.9 % 11/04/23 14:29 Neut # (Auto) 4.63 10^3/uL (1.8-7.7) 11/04/23 14:29 Lymph # (Auto) 0.7 10^3/uL (0.8-4.8) L 11/04/23 14:29 Gray # (Auto) 0.4 10^3/uL (0.2-0.9) 11/04/23 14:29 Eos # (Auto) 0.0 10^3/uL (0.0-0.8) 11/04/23 14:29 Baso # (Auto) 0.1 10^3/uL (0.0-0.1) 11/04/23 14:29 Nucleated RBC % (auto) 0 % 11/04/23 14:29 Nucleated RBCs # 0.0 /100WBC 11/04/23 14:29 Specimen Type Arterial 11/04/23 14:18 Sample Site Brachial, left 11/04/23 14:18 ABG pH 7.43 (7.35-7.45) 11/04/23 14:18 ABG pCO2 29.5 mmHg (35-45) L 11/04/23 14:18 ABG pO2 122.0 mmHg (80.0-100.0) H 11/04/23 14:18 ABG PO2/FiO2 Ratio 435 11/04/23 14:18 ABG HCO3 19.5 mmol/L (22-26) L 11/04/23 14:18 ABG O2 Saturation 99.4 11/04/23 14:18 ABG Base Excess -3.6 mmol/L (-2.0-2.0) L 11/04/23 14:18 Jae Test Pos 11/04/23 14:18 A-a O2 Gradient 5.0 mmHg (5-10) 11/04/23 14:18 Hematocrit 43.3 % (42-52) 11/04/23 14:18 Hgb O2 Saturation 98.4 % (95-100) 11/04/23 14:18 Carboxyhemoglobin 0.9 %THgb (0.4-20.1) 11/04/23 14:18 Methemoglobin 0.1 % (0.4-1.5) L 11/04/23 14:18 Total Hemoglobin 14.1 g/dL (14-18) 11/04/23 14:18 Sodium 137.0 mmol/L (131-143) 11/04/23 14:18 Potassium 3.9 mmol/L (3.5-5.0) 11/04/23 14:18 Glucose 105.0 mg/dL (70-115) 11/04/23 14:18 Ionized Calcium 1.2 mmol/L (1.1-1.4) 11/04/23 14:18 O2 Delivery Device Nc 11/04/23 14:18 O2 Liters/Min 2.0 % 11/04/23 14:18 FiO2 28.0 % 11/04/23 14:18 Net Web Application Developer ID Cak 11/04/23 14:18 Sodium 138 mmol/L (136-145) 11/04/23 14:29 Potassium 3.8 mmol/L (3.5-5.1) 11/04/23 14:29 Chloride 100 mmol/L (98-107) 11/04/23 14:29 Carbon Dioxide 19 mmol/L (22-29) L 11/04/23 14:29 Anion Gap 22.8 (5-19) H 11/04/23 14:29 BUN 18 mg/dL (8-23) 11/04/23 14:29 Creatinine 1.0 mg/dL (0.7-1.2) 11/04/23 14:29 GFR Calculation 75.2 mL/min (90-130) L 11/04/23 14:29 Glucose 104 mg/dL (65-115) 11/04/23 14:29 Calculated Osmolality 288 mOsm/kg (285-295) 11/04/23 14:29 Lactic Acid 3.2 mmol/L (0.5-2.2) H 11/04/23 14:29 Lactic Acid (Sepsis) 2.8 mmol/L (0.5-2.2) H 11/04/23 16:28 Calcium 9.7 mg/dL (8.5-10.5) 11/04/23 14:29 Total Bilirubin 1.4 mg/dL (0.15-1.2) H 11/04/23 14:29 AST 18 U/L (0-40) 11/04/23 14:29 ALT 10 U/L (0-41) 11/04/23 14:29 Alkaline Phosphatase 100 U/L (40-130) 11/04/23 14:29 Troponin T Baseline 19 ng/L (0-15) H 11/04/23 14:29 Troponin T 120 Minute 20.19 ng/L (0-15) H 11/04/23 16:28 Delta Troponin T 1.19 ABS# (0-10) 11/04/23 16:28 C-Reactive Protein 3.0 mg/L (0.0-4.9) 11/04/23 14:29 NT-Pro-B Natriuret Pep 241 pg/mL (0-125) H 11/04/23 14:29 Total Protein 6.7 g/dL (6.6-8.7) 11/04/23 14:29 Albumin 4.2 g/dL (3.5-5.2) 11/04/23 14:29 Globulin 2.5 g/dL (1.3-4.6) 11/04/23 14:29 All radiology interpretation(s) finalized by discharge Discharge Plan Discharge Patient Disposition: Home Clinical Impression: COPD (chronic obstructive pulmonary disease), SOB (shortness of breath), History of tobacco abuse Condition: Stable Prescriptions: No Action metoprolol tartrate 25 mg tablet 25 mg PO BID cyclobenzaprine 10 mg tablet 10 mg PO TID Qty: 30 2RF nitroglycerin 0.4 mg tablet, sublingual 0.4 mg SUBLINGUAL Q5M PRN (Reason: Chest Pain) albuterol sulfate 90 mcg/actuation HFA aerosol inhaler 2 puff inhalation Q6H PRN (Reason: shortness of breath or wheezing) Qty: 8.5 0RF Rx Instructions: NEEDS APPT PRIOR TO FURTHER REFILLS Spiriva with HandiHaler 18 mcg capsule, w/inhalation device 1 cap inhalation DAILY 30 Days Qty: 60 4RF Rx Instructions: puncture 1 cap using device; one dose = 2 inhalations fluticasone propion-salmeterol [Advair HFA] 115-21 mcg/actuation HFA aerosol inhaler 2 inh inhalation BID Qty: 12 6RF Discharge Orders: Discharge ED (Routine); Ordered 11/04/23 Ordered By: Seb Ibanez Referrals: Arjun Coburn MD [Primary Care Provider] - Discharge Diet: Usual diet Discharge Activity: Resume usual activity Patient Instructions: Opioid Safety, Pain Management Activity Restrictions/Additional Instructions: Thank you for choosing [facility] for your healthcare needs today. It is very important that you follow up as instructed or that you return to the Emergency Department should you have concerns or if your condition changes or worsens in any way. You were seen today for complaint of shortness of breath this is largely due to your oxygen bottle running out. We did have a slightly elevated lactic acid and your lab work the remainder was normal. It did go down after fluids and recheck but did not completely normalize. This may be due to increased work of breathing. No other signs of infection. Since she request to go home when I cannot find anything acute we did discharge you home if you have any change in your symptoms if you develop a fever shortness of breath abdominal pain chest discomfort productive cough you should be reevaluated. Coding Level of Care Code ED Electro Mechanical Technician for Lynne Junior
[2023-11-04 16:19] LABS: Reflex Lactate Order REFLEX LACTIC ORDERD
--- NOTE | 2023-11-04 16:23 | ECG_ITS ---
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 Measurements Intervals [place] Rate: 62 P: 40 SD: 190 QRS: 85 QRSD: 82 T: 102 QT: 413 QTc: 421 Interpretive Statements ELECTRONIC ATRIAL PACEMAKER LOW QRS VOLTAGE IN PRECORDIAL LEADS [QRS DEFLECTION < 1.0 mV IN CHEST LEADS] Compared to ECG 11/04/2023 13:58:39 Low QRS voltage now present Sinus rhythm no longer present Atrial abnormality no longer present Electronically Signed On 11-04-2023 17:35:16 CDT by Siddharth Morton M.D. [id number]
[2023-11-04] MEDS: sodium chloride 0.9% 1,000 ML 999 ML IV (16:29)
[2023-11-04 17:01] LABS: Troponin 5 2HR 20.19 ng/L (0-15); Troponin 5 2HR Delta 1.19 ABS# (0-10)
[2023-11-04 17:03] LABS: Lactic Acid level (Lactate) 2.8 mmol/L (0.5-2.2)
== END 2023-11-04 17:30 | disposition home or self-care (01) ==
PROVIDERS: Emergency Medicine; Emergency Provider Family Medicine; PCP Family Medicine
DX: J44.9 Chronic obstructive pulmonary disease, unspecified (principal); R06.02 Shortness of breath; F17.210 Nicotine dependence, cigarettes, uncomplicated; Z95.0 Presence of cardiac pacemaker; Z99.81 Dependence on supplemental oxygen
CPT/HCPCS: 36415; 36600; 71045; 80051; 80053; 82330; 82805; 83605; 83880; 84484; 85025; 86140; 93005; 94640; 96360; 99285; J7030; J7613